=== PATIENT | female | born 1945 | race Caucasian/White ===

== ENCOUNTER 2019-09-03 13:52 | Inpatient (IN) | payer OTHER, SELFPAY ==
[2019-09-03] VITALS (9 sets, daily range): BP systolic 140–183; BP diastolic 57–105; PULSE 82–94; RESP 14–20; TEMP 36.7–38.1; O2SAT 96–100; BMI 27.6
--- NOTE | ~2019-09-03 | XR_ITS ---
EXAMINATION: XR chest 1V portable DATE: 09/03/2019 14:14 INDICATION: Shortness of breath. TECHNIQUE: A single frontal view of the chest was obtained. COMPARISON: Chest 2 views 02/14/2018, CT abdomen and pelvis 03/31/2018 FINDINGS: There is chronic mild elevation of right hemidiaphragm. There is mild atelectasis in the lo wer lung zones. No pleural effusion or pneumothorax. The heart size is normal. There is a large hiata l hernia. There are changes of vertebroplasty at 2 levels. There is a surgical clip in right neck. Th ere are gallstones in the gallbladder. IMPRESSION: 1. Mild atelectasis in the lower lung zones. 2. Large hiatal hernia. 3. Cholelithiasis. Reviewed, dictated and finalized at location A.
--- NOTE | ~2019-09-03 | CT_ITS ---
EXAMINATION: CT brain wo con DATE: 09/03/2019 15:22 INDICATION: Altered mental status. TECHNIQUE: Computed tomography (CT) of the head was performed without intravenous contrast. The mA wa s adjusted according to patient size. Iterative reconstruction technique was employed. The dose-lengt h product was 681.00 mGy-cm. COMPARISON: Head CT 05/20/2019 FINDINGS: There is no intracranial hemorrhage, acute infarction, or abnormal intracranial mass lesion . There are scattered areas of low attenuation in the cerebral white matter, which is within normal l imits for the patient's age. The ventricles are normal in size. There is mild mucosal thickening in t he ethmoid sinuses. The orbits are normal. The mastoid air cells are normal. IMPRESSION: 1. Normal aging brain. Reviewed, dictated and finalized at location A. IMPRESSION: 1. Normal aging brain.
--- NOTE | ~2019-09-03 | XR_ITS ---
EXAMINATION: XR lumbar puncture diagnostic DATE: 09/03/2019 22:01 INDICATION: Fever, muscle rigidity, confusion TECHNIQUE: The procedure including the risks and benefits was discussed with the patient's guardian. The Guardian understood the risks and agreed to proceed. The skin overlying the L3-4 level was preppe d and draped in usual sterile fashion. Subcutaneous 1% lidocaine was used for local anesthesia. A 2 2 gauge spinal needle was advanced under fluoroscopic guidance. The needle was removed and the entry site was cleaned and dressed. There were no immediate complications. Fluoroscopy exposure time was 0. 3 minutes minutes. The DAP for this procedure was 2.174 Gycm2. One image was obtained. FINDINGS: Real-time fluoroscopy demonstrates the needle at the L3-4 level. Eight mL of clear, colorle ss fluid was collected in two tubes. IMPRESSION: 1. Successful fluoro-guided lumbar puncture. Reviewed, dictated and finalized at location A.
--- NOTE | ~2019-09-03 | US_ITS ---
US venous doppler [facility] DATE: 09/04/2019 07:47 INDICATION: Swelling of the lower extremities TECHNIQUE: Real-time and color flow imaging and Doppler analysis of the veins of the lower extremitie s COMPARISON: 05/29/2018 venous duplex examination of the lower extremities FINDINGS: There is spontaneous and phasic flow and normal augmentation and color flow signal and norm al compression of the deep veins of both legs. The greater saphenous veins are patent. No evidence of deep venous thrombosis of the legs IMPRESSION: No evidence of deep venous thrombosis of the legs. Reviewed, dictated and finalized at Location A. Reviewed, dictated and finalized at location A.
--- NOTE | ~2019-09-03 | US_ITS ---
US right upper quadrant DATE: 09/04/2019 09:20 INDICATION: Abnormal liver function tests. TECHNIQUE: Real time imaging of the liver, pancreas and gallbladder COMPARISON: 03/31/2018 CT abdomen pelvis FINDINGS: The examination is very limited; limited cooperation by patient. The pancreas is obscured by gas. There is limited visualization of the liver. There is normal hepatopedal portal venous flow . There are gallstones. The gallbladder wall is 2.7 mm approximate thickness. IMPRESSION: Cholelithiasis; borderline gallbladder wall thickening Very limited examination Reviewed, dictated and finalized at Location A. Reviewed, dictated and finalized at location A.
--- NOTE | 2019-09-03 13:47 | ED.AMS ---
HPI - Altered Mental Status General Chief Complaint: Altered Mental Status Stated Complaint: RESP DIFFICULTY Time Seen by Provider: 09/03/19 13:44 Source: EMS Mode of arrival: EMS Limitations: dementia History of Present Illness HPI narrative: Pt is a 74 y/o female who has a H/O COPD, HTN, CVA, and dementia presents to the ED, via EMS, from home with c/o AMS. EMS states that the pt was not responding upon their arrival. Per EMS, pt's BS was 63 and after giving the pt 125mg of D10 her BS was 161. Her O2 Sat was 93% and her capnography was between 13 and 19. After the pt was placed on 2L of O2 her O2 Sat was 99%. Pt's BP was 176/90 and was started on fluids. EMS states that the pt is now able to speak, which she could not do when they arrived. She has a fever of 100.6F and she has been more SOB and has a chronic cough. She is not normally on home O2. A complete HPI is limited d/t pt's dementia. MD complaint: altered mental status Context: COPD and other (dementia) Associated symptoms: cough (chronic), fever (100.6F) and shortness of breath (more) Treatments prior to arrival: glucose, IV fluid and oxygen Related Data Home Medications Medication Instructions Recorded Confirmed Lacto.acidophilus-Bif.animalis 5 1 cap PO DAILY 06/14/19 billion cell sprinkle capsule aspirin 81 mg tablet,delayed 81 mg PO DAILY 06/14/19 release citalopram 40 mg tablet 20 mg PO DAILY 06/14/19 furosemide 20 mg tablet 20 mg PO QAM 06/14/19 metoprolol succinate 25 mg 25 mg PO DAILY 06/14/19 tablet,extended release 24 hr multivitamin 1 tablet PO DAILY 06/14/19 nystatin 100,000 unit/gram topical 1 applic TOPICAL BID 06/14/19 powder oxybutynin chloride 10 mg 10 mg PO DAILY 06/14/19 tablet,extended release 24 hr memantine [Namenda] 20 mg PO BID 09/03/19 triamterene-hydrochlorothiazid 0.5 tablet PO QAM 09/03/19 Allergies Allergy/AdvReac Type Severity Reaction Status Date / Time trazodone Allergy Mild RASH Verified 09/03/19 13:57 clindamycin Allergy Unknown Rash Verified 09/03/19 13:57 codeine Allergy Unknown SWELLING Verified 09/03/19 13:57 OF TONUE,Thick tongue iodine Allergy Unknown VIOLENTLY Verified 09/03/19 13:57 SICK TO STOMACH,Nausea naproxen Allergy Unknown abdominal Verified 09/03/19 13:57 discomfort; upset stomach pollen extracts Allergy Unknown Sneezing Verified 09/03/19 13:57 shrimp Allergy Unknown SICK TO Verified 09/03/19 13:57 STOMACH Shrimp Allergy Unknown SICK TO Uncoded 07/26/19 12:37 STOMACH Review of Systems Review of Systems: Narrative: A complete ROS is limited d/t pt's dementia. Constitutional: Constitutional: Reports fever(s) (100.6F) Respiratory: Respiratory: Reports cough (chronic) and Reports dyspnea (worsening) [facility] Past Medical History Medical History Chronic diastolic (congestive) heart failure History of COPD History of CVA (cerebrovascular accident) History of depression History of gastroesophageal reflux (GERD) History of hyperlipidemia History of hypertension History of pulmonary embolism Surgical History Surgical History History of hysterectomy History of kyphoplasty History of tonsillectomy Family History Family History (System 07/26/19 @ 12:37 by Marleen Page) Mother Hypertension Sibling Hypertension Asthma Family history of chronic obstructive pulmonary disease Father Acute myocardial infarction Carcinoma of colon Social History Social History Smoking status: Former smoker Tobacco type: cigarettes Second hand tobacco smoke exposure: No Smoking end date: 06/02/93 Alcohol intake: never Substance use: never Substance use type: does not use Gender identity (if verbalized by the patient): Female Exam Const: General: no acute di
[2019-09-03 13:58] LABS: Glucose Point of Care 119 (65-105)
[2019-09-03] MEDS: SODIUM CHLORIDE 0.9% IV 1,000 ML 999 ML IV CONT (13:58)
--- NOTE | 2019-09-03 13:59 | ECG_ITS ---
Measurements Intervals [place] Rate: 94 P: 54 WV: 195 QRS: 2 QRSD: 97 T: 14 QT: 390 QTc: 489 Interpretive Statements SINUS RHYTHM BORDERLINE ST-T WAVE ABNORMALITY- ANT/INF LEADS BASELINE ARTIFACT- II, III, AVL, AVF, V1, V4 BORDERLINE ECG Electronically Signed On 09-03-2019 14:10:07 CDT by Andrez Dhaliwal D.O.
[2019-09-03 14:23] LABS: Basophils Absolute Auto 0.1 K/mm3 (0.0-0.1); Basophils Percent Auto 0.6 % (0.2-1.2); Eosinophils Absolute Auto 0.2 K/mm3 (0-0.3); Eosinophils Percent Auto 1.9 % (0-4.4); Hemoglobin 12.3 g/dL (12.0-15.0); Immature Granulocyte Absolute 0.02 K/mm3 (0.00-0.031); Immature Granulocyte Percent A 0.2 % (0-0.5); Lymphocytes Absolute Auto 1.44 K/mm3 (0.9-3.2); Lymphocytes Percent Auto 17.1 % (18.3-44.2); Mean Corpuscular HGB Conc 33.2 g/dl (32-36); Mean Corpuscular Hemoglobin 30.9 pg (26-34); Mean Platelet Volume 11.4 fl (7.4-10.4); Monocytes Absolute Auto 0.8 K/mm3 (0.1-0.6); Monocytes Percent Auto 9.5 % (2.6-8.5); Neutrophils Absolute Auto 5.9 K/mm3 (1.3-6.7); Neutrophils Percent Auto 70.7 % (45.5-73.1); Platelet Count Result 160 k/mm3 (150-375); Red Blood Count 3.98 M/mm3 (4.2-5.4); Red Cell Distribution Width 14.2 % (11.5-14.5); White Blood Count 8.4 K/mm3 (4.5-10.0)
[2019-09-03 14:34] LABS: Lactic Acid Reflex 2.4 mmol/L (0.7-2.1)
[2019-09-03 14:36] LABS: INR 1.2; Prothrombin Time 15.3 Seconds (11.1-14.7)
[2019-09-03 14:37] LABS: Partial Thromboplastin Time 39.3 SECONDS (22.3-36.8)
[2019-09-03 14:38] LABS: Alanine Aminotransferase 17 U/L (4-35); Albumin Level 3.3 g/dL (3.5-5.1); Alkaline Phosphatase 144 U/L (38-126); Aspartate Amino Transferase 36 U/L (14-36); Bilirubin,Total 0.9 mg/dL (0.2-1.3); Blood Urea Nitrogen 21 mg/dL (7-17); CRP 0.9 mg/dL (<1.0); Calcium 8.8 mg/dL (8.4-10.2); Carbon Dioxide 19 mmol/L (22-30); Chloride 104 mmol/L (98-107); Estimated Glomerular Filt Rate > 60; Glucose 119 mg/dL (65-105); Lactate Dehydrogenase 409 U/L (313-618); Potassium 3.8 mmol/L (3.4-5.0); Sodium 134 mmol/L (137-145)
[2019-09-03 14:47] LABS: Add Urine Microscopic? YES; Amorphous Sediment Urine Few; Appearance Urine Cloudy (Clear); Bacteria Urine Trace /hpf; Bilirubin Urine Negative (Negative); Blood Urine Negative (Negative); Color Urine Yellow (Yellow); Glucose Urine UA Negative (Negative); Ketones Urine Negative (Negative); Leukocyte Esterase Ur Trace LEU/UL (Negative); Mucus Urine Rare /lpf; Nitrate Urine Negative (Negative); Protein Urine Negative (Negative); RBC Urine 0-2 /hpf (0-2); Squamous Epithelial Cell Urine Few /hpf (Few)
[2019-09-03 17:21] LABS: Reflex Lactic Acid Yes or No Add Lactic
[2019-09-03] MEDS: LACTATED RINGERS 1,000 ML 100 ML IV CONT (17:47)
--- NOTE | 2019-09-03 18:00 | PM.IMHP ---
H&P: HPI History of Present Illness Chief complaint: Confusion, fever. Narrative: Neida Martines is a 74-year-old female with history of stroke, dementia, hypertension, and history of DVT and pulmonary embolism who presented to the emergency department earlier this afternoon via EMS from home for evaluation of confusion and fever. She is a poor historian due to current clinical condition, and as such almost all of this medical history is obtained via a review of her electronic medical records as well as discussions with her daughter, Ellen, via phone with the patient's permission. She does attempt to answer most questions, but I am not certain her answers are reliable. Daughter notes that the patient's dementia has progressed over the last several months, and in fact she was started on memantine approximately 6 to 8 weeks ago. ?She has her good and bad days? but it seems as though her short-term memory has become extraordinarily short. Typically she is able to get up with help, and can ambulate with a walker, feed herself, and alert them when she has to use the bathroom. For the past 3 days or so, she has required 2 person assist to go from a sitting to standing position, but once standing, she is able to shuffle with her walker and get to the bathroom. Today, however, it took 3 people to get her up from the toilet, and when they got her to the wheelchair she became ?stiff as a board? in nearly slid out of the chair. On exam, she has muscle rigidity bilaterally, lower extremities > upper extremities. Daughter mentions that for the last several months the patient will occasionally has episodes of stiffness, for instance her upper arms will become stiff to the point where she is extending her arms anteriorly and at the same time is seems as though her hands curl up. They had never seen her lower extremities stiff before the last couple of days. In addition to this stiffness over the past couple of days, the patient has complained of mild shortness of breath, cough (which is chronic and unchanged), temperature up to 100.6?, and decreased appetite. Today she tells me she had a mild sore throat as well. Her confusion today is much worse than they have ever seen before. Review of Systems Review of Systems: Narrative: Unable to be accurately obtain given her current clinical condition as detailed above. [facility] Past Medical History Medical History (Updated 09/03/19 @ 22:02 by Portia Santo PA-C) C. difficile colitis Carotid artery disease Chronic diastolic (congestive) heart failure COPD (chronic obstructive pulmonary disease) Dementia Depression with anxiety GERD (gastroesophageal reflux disease) History of CVA (cerebrovascular accident) With mild facial droop. Hyperlipidemia Hypertension Pulmonary embolism Surgical History Surgical History (Updated 09/03/19 @ 21:48 by Portia Santo PA-C) History of cataract extraction History of hysterectomy History of kyphoplasty History of open reduction and internal fixation (ORIF) procedure Right tib/fib. History of right-sided carotid endarterectomy History of tonsillectomy Family History Family History Mother Hypertension Sibling Hypertension Asthma Family history of chronic obstructive pulmonary disease Father Acute myocardial infarction Carcinoma of colon Social History Social History (Updated 09/03/19 @ 21:50 by Portia Santo PA-C) Social History: The patient lives in [place]. She has 4 daughters. Her daughter, Abbey, lives at home with her in his her full-time systems engineer. Her daughter, Ellen Tovar, is her healthcare power of mergers and acquisitions attorney. They wish the patient to be a full code. She is a former smoker, 1 pack per day for 35 years, and quit 1993. No alcohol or drug use. Smoking packs per day: 1 Smoking cigarettes per day: 20.0 Years smoked: 35 Smoking pack-years: 35.00 Emily
--- NOTE | 2019-09-03 18:03 | ADMGEN ---
This patient, Neida Martines, was admitted to 3 [facility] Surg Room 305-01. Patient oriented to hospital policies and general routines including ID bracelet, bed and alarms, visiting hours, pain management, procedures, bathroom and other care routines, personal items, smoking policy, room service/diet, and visiting hours. Valuables list has been completed. Information on how to activate the Rapid Response Team has been discussed. Patient/Family are encouraged to report perceived risks to care and to ask questions if they do not understand what they are told or what they should do.
[2019-09-03 18:41] LABS: Lactic Acid 1.2 mmol/L (0.7-2.1)
[2019-09-03 20:00] LABS: Ammonia 74 umol/L (9-30)
[2019-09-03 20:03] LABS: Creatine Kinase 154 U/L (30-135)
[2019-09-03 20:16] LABS: Erythrocyte Sedimentation Rate 64 mm/hr (0-20)
[2019-09-03 22:06] LABS: Glucose CSF 37 mg/dL (40-70); Total Protein CSF 40 mg/dL (12-60)
[2019-09-03 22:31] LABS: Appearance CSF Clear (Clear); CSF source CSF; Color CSF Colorless (Colorless); Lymphocytes CSF 65 % (40-80); Monocytes CSF 35 % (15-45); Nucleated Cell CSF 8 /uL (0-5); Red Blood Cell CSF 0 (0-2)
[2019-09-03] MEDS: LACTULOSE 20 GM/30 ML UDC PO (23:35)
[2019-09-03] MEDS: SODIUM CHLORIDE 0.9% IV 1,000 ML 100 ML IV CONT (23:39)
[2019-09-04] VITALS (8 sets, daily range): BP systolic 140–166; BP diastolic 61–74; PULSE 81–90; RESP 18–20; TEMP 36.6–36.8; O2SAT 97–100
[2019-09-04] MEDS: ACYCLOVIR SODIUM IVPB 800 MG in DEXTROSE 5% IN WATER 250 ML 266 MG IVPB ×4 (00:19→22:02)
[2019-09-04] MEDS: AMPICILLIN 2 GM/NS 100 ML 2 GM/100 ML BAG IVPB ×6 (00:55→20:26)
[2019-09-04 06:29] LABS: Ammonia 49 umol/L (9-30)
[2019-09-04 07:00] LABS: INR 1.4; Prothrombin Time 16.5 Seconds (11.1-14.7)
[2019-09-04 07:49] LABS: Alanine Aminotransferase 15 U/L (4-35); Albumin Level 2.8 g/dL (3.5-5.1); Alkaline Phosphatase 123 U/L (38-126); Aspartate Amino Transferase 37 U/L (14-36); Bilirubin,Total 0.6 mg/dL (0.2-1.3); Blood Urea Nitrogen 16 mg/dL (7-17); Calcium 8.4 mg/dL (8.4-10.2); Carbon Dioxide 19 mmol/L (22-30); Chloride 109 mmol/L (98-107); Creatine Kinase 204 U/L (30-135); Estimated CRCL calculation 61 ml/min; Estimated Glomerular Filt Rate > 60; Glucose 69 mg/dL (65-105); Magnesium 1.7 mg/dL (1.6-2.3); Phosphorus 3.4 mg/dL (2.5-4.5); Potassium 3.6 mmol/L (3.4-5.0); Sodium 135 mmol/L (137-145)
[2019-09-04] MEDS: lisinopriL 10 MG TABLET PO (10:11)
[2019-09-04] MEDS: ASPIRIN 81 MG ENTERIC TABLET PO (10:11)
[2019-09-04 10:35] LABS: Iron 82 ug/dL (37-170)
[2019-09-04 10:45] LABS: Percent Iron Saturation 34 % (20-50)
[2019-09-04 10:58] LABS: Hepatitis B Surface Antigen Negative (Negative)
[2019-09-04 11:03] LABS: Hepatitis B Core IgM Result Negative (Negative)
[2019-09-04 11:11] LABS: HAV RESULT Negative (Negative)
[2019-09-04 11:16] LABS: Hepatitis C Virus Antibody Negative (Negative)
[2019-09-04 11:17] LABS: CRP 0.6 mg/dL (<1.0)
--- NOTE | 2019-09-04 12:24 | PM.IMPN ---
Progress Note: A&P Assessment and Plan (1) Encephalopathy: Code(s): G93.40 - Encephalopathy, unspecified Status: Acute Assessment and Plan: May very well be infectious in etiology given fever, however her chest x-ray and urinalysis are really unremarkable. CSF findings could be due to low-grade viral meningitis with slightly increased nucleated cells better predominantly lymphocytes and slightly low glucose Continue empiric antibiotics pending culture results Consider non infectious etiology such as drug reaction or vasculitis No significant metabolic derangements noted on labs. Ammonia level, B12, and TSH all unremarkable Bedside swallow evaluation past Neurology evaluation in progress (2) Hypertension: Code(s): I10 - Essential (primary) hypertension Status: Acute Assessment and Plan: Blood pressures were reviewed and they are not at goal, as high as 183/96 since admission. 09/02 140/61 Will continue antihypertensives and monitor (3) Dementia: Code(s): F03.90 - Unspecified dementia without behavioral disturbance Status: Acute Assessment and Plan: Resume memantine. (4) Muscle rigidity: Code(s): R29.898 - Other symptoms and signs involving the musculoskeletal system Status: Acute Assessment and Plan: Differential diagnosis includes seizure activity, stiff person syndrome, bilateral upper motor neuron ischemia Subjective Date/time seen: 09/04/19 12:24 Interval history: 74-year-old female with history of dementia was admitted 09/02 with fever and confusion. No focal symptoms otherwise. She is unable to provide a cogent history. Review of Systems Review of Systems: ROS unobtainable: Yes unobtainable due to medical condition Exam Narrative: Exam Narrative: HEENT: EOMI, PERRL, pharyngeal mucosa pink and intact NECK: No JVD CHEST: Clear to auscultation. Normal effort. HEART: NL S1/S2, regular, no murmur ABDOMEN: BS+, soft, nontender, no mass, no bruits EXTREMITIES: No cyanosis, edema, or clubbing NEUROLOGIC: CN intact and symmetric to inspection. MUSCULOSKELETAL: Tone and strength symmetric. No tremor cogwheeling. Tone not as pronounced as described 09/02 PSYCH: Alert. Oriented to person, place, but thought year was 2009. Objective Data Vital Signs Vital Signs: Vital Signs - 24 hr 09/03/19 13:47 09/03/19 13:52 09/03/19 16:32 Temperature 100.5 F H Pulse Rate 94 87 Respiratory Rate 20 20 16 Blood Pressure 183/96 H 140/65 Pulse Oximetry 99 98 09/03/19 17:00 09/03/19 19:33 09/03/19 20:00 Temperature 99.6 F Pulse Rate 91 85 88 Respiratory Rate 20 Blood Pressure 153/71 H Pulse Oximetry 98 09/03/19 20:35 09/03/19 21:19 09/03/19 22:00 Temperature 98.1 F Pulse Rate 94 93 82 Respiratory Rate 16 14 20 Blood Pressure 178/105 H 166/90 H 141/57 H Pulse Oximetry 97 96 100 09/04/19 00:00 09/04/19 06:00 09/04/19 08:00 Temperature 97.8 F Pulse Rate 80 81 85 Respiratory Rate 20 Blood Pressure 140/61 Pulse Oximetry 97 Intake/Output Intake/Output: Intake & Output 09/01/19 09/02/19 09/03/19 09/04/19 23:59 23:59 23:59 23:59 Intake Total 1100 1332 Output Total 300 Balance 800 1332 Meds/Results Medications: Active Medications Generic Name Dose Route Start Last Admin Trade Name Freq PRN Reason Stop Dose Admin Aspirin 81 mg 09/04/19 09:00 09/04/19 10:11 Aspirin Ec PO 81 mg DAILY CORDELIA Administration Ceftriaxone Sodium 2 gm in 100 mls @ 200 mls/hr 09/03/19 22:30 09/04/19 11:04 Rocephin 2 Gm/D5w 100 Ml IVPB 200 mls/hr Q12HR CORDELIA Administration Ampicillin Sodium 2 gm in 100 mls @ 200 mls/hr 09/04/19 00:00 09/04/19 10:39 Ampicillin 2 Gm/Ns 100 Ml IVPB Infused Q4H CORDELIA Infusion Acyclovir Sodium 800 mg/ 266 mls @ 266 mls/hr 09/03/19 22:20 09/04/19 06:04 Dextrose IVPB Infused Q8HR CORDELIA Infusion Sodium Chloride 1,000 ml
[2019-09-04] MEDS: SODIUM CHLORIDE 0.9% IV 1,000 ML 100 ML IV CONT (17:11)
[2019-09-05] VITALS: PULSE 61
[2019-09-05] MEDS: AMPICILLIN 2 GM/NS 100 ML 2 GM/100 ML BAG IVPB ×4 (00:10→13:03)
[2019-09-05 04:00] VITALS: PULSE 87
[2019-09-05] MEDS: SODIUM CHLORIDE 0.9% IV 1,000 ML 100 ML IV CONT (05:20)
[2019-09-05] MEDS: ACYCLOVIR SODIUM IVPB 800 MG in DEXTROSE 5% IN WATER 250 ML 266 MG IVPB ×2 (05:24→14:12)
[2019-09-05 06:00] VITALS: BP 164/75; PULSE 90; RESP 18; TEMP 36.5; O2SAT 100
[2019-09-05] MEDS: lisinopriL 10 MG TABLET PO (08:33)
[2019-09-05] MEDS: ASPIRIN 81 MG ENTERIC TABLET PO (08:33)
[2019-09-05 08:40] VITALS: PULSE 90
[2019-09-05 10:16] LABS: Basophils Absolute Auto 0.1 K/mm3 (0.0-0.1); Basophils Percent Auto 0.8 % (0.2-1.2); Eosinophils Absolute Auto 0.4 K/mm3 (0-0.3); Eosinophils Percent Auto 4.4 % (0-4.4); Hematocrit 34.7 % (37.0-47.0); Hemoglobin 11.6 g/dL (12.0-15.0); Immature Granulocyte Absolute 0.03 K/mm3 (0.00-0.031); Immature Granulocyte Percent A 0.4 % (0-0.5); Lymphocytes Absolute Auto 1.85 K/mm3 (0.9-3.2); Mean Corpuscular HGB Conc 33.4 g/dl (32-36); Mean Corpuscular Hemoglobin 30.9 pg (26-34); Mean Corpuscular Volume 92.3 fl (80-100); Mean Platelet Volume 10.7 fl (7.4-10.4); Monocytes Absolute Auto 1.1 K/mm3 (0.1-0.6); Monocytes Percent Auto 12.9 % (2.6-8.5); Neutrophils Percent Auto 59.5 % (45.5-73.1); Platelet Count Result 152 k/mm3 (150-375); Red Blood Count 3.76 M/mm3 (4.2-5.4); Red Cell Distribution Width 14.3 % (11.5-14.5); White Blood Count 8.4 K/mm3 (4.5-10.0)
[2019-09-05 10:42] LABS: Alanine Aminotransferase 17 U/L (4-35); Albumin Level 2.9 g/dL (3.5-5.1); Alkaline Phosphatase 120 U/L (38-126); Aspartate Amino Transferase 43 U/L (14-36); Bilirubin,Total 0.8 mg/dL (0.2-1.3); Blood Urea Nitrogen 8 mg/dL (7-17); CRP 0.9 mg/dL (<1.0); Calcium 8.2 mg/dL (8.4-10.2); Carbon Dioxide 20 mmol/L (22-30); Chloride 108 mmol/L (98-107); Estimated CRCL calculation 70 ml/min; Estimated Glomerular Filt Rate > 60; Glucose 102 mg/dL (65-105); Potassium 3.2 mmol/L (3.4-5.0); Sodium 135 mmol/L (137-145)
[2019-09-05 11:56] LABS: Procalcitonin 0.14 ng/mL (<0.10)
[2019-09-05 12:00] VITALS: PULSE 84
--- NOTE | 2019-09-05 12:26 | PM.DS ---
DS: Diagnosis Admitting Diagnosis Admitting Diagnosis: Encephalopathy, unspecified Discharge Diagnosis (1) Encephalopathy: Code(s): G93.40 - Encephalopathy, unspecified Status: Acute Assessment and Plan: May very well be infectious in etiology given fever, however her chest x-ray and urinalysis are unremarkable. CSF findings could be due to low-grade viral meningitis/encephalitis with slightly increased nucleated cells that are predominantly lymphocytes and monocytes and slightly low glucose Continue empiric valacyclovir pending HSV results from CSF Consider non infectious etiology such as drug reaction or vasculitis (clinically unlikely) No significant metabolic derangements noted on labs. Ammonia level, B12, and TSH all unremarkable Neurology consultation appreceiated (2) Hypertension: Code(s): I10 - Essential (primary) hypertension Status: Acute Assessment and Plan: Blood pressures were reviewed and they are not at goal, as high as 183/96 since admission. 09/02 140/61, 09/04 152/92 Continue antihypertensives (3) Dementia: Code(s): F03.90 - Unspecified dementia without behavioral disturbance Status: Acute Assessment and Plan: Continue memantine. (4) Muscle rigidity: Code(s): R29.898 - Other symptoms and signs involving the musculoskeletal system Status: Acute Assessment and Plan: Differential diagnosis included encephalitis, seizure activity, stiff person syndrome, bilateral upper motor neuron ischemia Resolution spontaneously suggests encephalitis DS: Summary Hospital Course Reason for hospitalization: Fever and rigidity Hospital Course: Patient was experience can cough and fever. A increased confusion and rigidity developed. Lab evaluation was essentially unremarkable. White blood count normal with monocytosis. CSF with 8 nucleated cells and predominance of lymphocytes and monocytes. Patient was treated with supportive measures measures and empiric antibiotics including vancomycin ampicillin ceftriaxone and acyclovir. Gram stain of CSF was negative for organisms. Blood cultures and CSF cultures were negative at 48 hours. Patient gradually improved and was back to her baseline mental status by day of discharge. Tolerated diet. Required moderate assist of 2 for transfer. Family wished to take her home and continue working with her there. Home health was to contact him regarding follow-up. COVID 19 nasopharyngeal swab was obtained and results were pending at the time of discharge. Patient was to be quarantine at home with her daughters. Status at Discharge Functional status at discharge: uses cane/walker Overall status at discharge: patient is progressing back to baseline Time Spent with Patient Time attestation: Total time spent providing and/or coordinating discharge services: 40 min Exam Narrative: Exam Narrative: HEENT: EOMI, PERRL, pharyngeal mucosa pink and intact NECK: No JVD CHEST: Clear to auscultation. Normal effort. HEART: NL S1/S2, regular, no murmur ABDOMEN: BS+, soft, nontender, no mass, no bruits EXTREMITIES: No cyanosis, edema, or clubbing NEUROLOGIC: CN intact and symmetric to inspection. MUSCULOSKELETAL: Tone and strength symmetric. No tremor cogwheeling. Tone not WNL PSYCH: Alert. Oriented to person, place, initially said 1920 for year but changed answer to 2019. DS: Data Data Completed and Pending Labs on day of discharge: Labs from last 24 hours 09/05/19 09/05/19 09/05/19 10:07 10:06 10:06 WBC 8.4 RBC 3.76 L Hgb 11.6 L Hct 34.7 L MCV 92.3 MCH 30.9 MCHC 33.4 RDW 14.3 Plt Count 152 MPV 10.7 H Immature Gran % (Auto) 0.4 Neut % (Auto) 59.5 Lymph % (Auto) 22.0 Alexander % (Auto) 12.9 H Eos % (Auto) 4.4 Baso % (Auto) 0.8 Lymph # (Auto) 1.85 Alexander # (Auto) 1.1 H Eos # (Auto) 0.4 H Baso # (Auto) 0.1 Abs Immat Gran (auto) 0
[2019-09-05] MEDS: POTASSIUM CHLORIDE 20 MEQ TABLET 40 MEQ PO (13:03)
[2019-09-05 13:50] VITALS: BP 152/92; PULSE 95; RESP 16; TEMP 37.2; O2SAT 97
[2019-09-05 15:43] LABS: Ammonia < 9 umol/L (9-30)
[2019-09-07 09:52] LABS: Herpes Simplex Type 1 DNA PCR Not Detected (Not Detected); Herpes Simplex Type 2 DNA PCR Not Detected (Not Detected)
[2019-09-07 15:16] LABS: Varicella IgG Antibody >4000.00 Index (>=165.00); Varicella IgM Antibody <=0.90 (<=0.90)
[2019-09-07 17:24] LABS: VDRL Quantitative CSF Nonreactive (Nonreactive)
[2019-09-08 05:35] LABS: Pan-SARS RNA: NEGATIVE (NEGATIVE); SARS-CoV-2 RNA: NEGATIVE (NEGATIVE)
== END 2019-09-05 16:00 | disposition home health service (06) | DRG 864 ==
LOC: ANHED 15:47 → ANH3MEDSUR 16:24
PROVIDERS: Physician Assistant; Admitting Provider Family Medicine; Emergency Provider Emergency Medicine; PCP Family Medicine; Visit Provider Internal Medicine
DX: R50.9 Fever, unspecified (principal); G93.49 Other encephalopathy; I50.32 Chronic diastolic (congestive) heart failure; R05 Cough; I11.0 Hypertensive heart disease with heart failure; Z20.828 Contact with and (suspected) exposure to other viral communicable diseases; R29.898 Other symptoms and signs involving the musculoskeletal system; F03.90 Unspecified dementia, unspecified severity, without behavioral disturbance, psychotic disturbance, mood disturbance, and anxiety; F41.8 Other specified anxiety disorders; E78.5 Hyperlipidemia, unspecified; K21.9 Gastro-esophageal reflux disease without esophagitis; J44.9 Chronic obstructive pulmonary disease, unspecified; I69.392 Facial weakness following cerebral infarction; Z86.718 Personal history of other venous thrombosis and embolism; Z86.711 Personal history of pulmonary embolism; Z98.42 Cataract extraction status, left eye; Z98.41 Cataract extraction status, right eye; Z90.710 Acquired absence of both cervix and uterus; Z87.891 Personal history of nicotine dependence
CPT/HCPCS: 36415; 51701; 62328; 70450; 71045; 76705; 80053; 81001; 82140; 82550; 82607; 82945; 83540; 83550; 83605; 83615; 83735; 84100; 84145; 84157; 84443; 85025; 85610; 85652; 85730; 86038; 86140; 86592; 86705; 86709; 86787; 86803; 87040; 87070; 87205; 87340; 87529; 87635; 87804; 89051; 92610; 93005; 93970; 96361; 96365; 97162; 99285; A9270; J0131; J0133; J0290; J0696; J3370; J7030; J7060; J7120; U0002